=== PATIENT | female | born 1985 | race Caucasian/White ===

== ENCOUNTER → 2017-07-30 16:26 | Outpatient (CLI) | payer MEDICAID, SELFPAY ==
[2017-08-01 19:23] LABS: Chlamydia Trachomatis by PCR Negative (Negative); Neisserai gonorrhoeae by PCR Negative (Negative); Probe Check PASS; Sample Adequacy Control PASS; Specimen Processing Control PASS
[2017-08-04 14:43] LABS: HPV Reflexed? NOT INDICATED
== END ==
PROVIDERS: Family Provider Family Medicine; PCP Family Medicine; Visit Provider Obstetrics & Gynecology
DX: Z11.3 Encounter for screening for infections with a predominantly sexual mode of transmission (principal); Z12.4 Encounter for screening for malignant neoplasm of cervix
CPT/HCPCS: 87491; 87591; 88175; G0145

== ENCOUNTER → 2017-09-08 16:05 | Outpatient (CLI) | payer MEDICAID, SELFPAY | PROVIDERS: Visit Provider Obstetrics & Gynecology | DX: N39.0 Urinary tract infection, site not specified (principal) | CPT/HCPCS: 87086; 87088 ==

== ENCOUNTER → 2017-12-17 18:17 | Outpatient (CLI) | payer MEDICAID, SELFPAY ==
--- NOTE | 2017-12-17 18:24 | US_ITS ---
STUDY: ULTRASOUND OF THE FEMALE PELVIS - COMPLETE REASON FOR EXAM: Female, 32 years old. Cramping. Check IUD placement. TECHNIQUE: Transabdominal and Transvaginal TECHNICAL QUALITY: Adequate. COMPARISON: 04/18/2017 FINDINGS: The uterus is anteverted and is in a midline position. The uterus measures 11.9 x 4.9 x 2.8 cm. Normal uterine cervix. The endometrium measures 3 mm in thickness, and is hyperechoic. There is an intrauterine device noted in satisfactory position. There is no demonstrated endometrial mass. There is no demonstrated myometrial mass. The right ovary is visualized. The right ovary measures 3.4 x 3.4 x 2.0 cm. There is no right ovarian cyst or ovarian mass. There is a 2.9 x 2.8 cm complex cyst in the right ovary. There is normal arterial and normal venous vascularity. The left ovary is visualized. The left ovary measures 2.9 x 1.9 x 1.3 cm. There is no left ovarian cyst or ovarian mass. There is no visualized left adnexal mass or complex lesion. There is normal arterial and normal venous vascularity. There is no fluid in the cul-de-sac. US/Pelvic (Non ) IMPRESSION: Satisfactory position of the IUD. Normal uterus. Complex cyst in the right ovary. This may be hemorrhagic in nature. A follow-up ultrasound in 2-3 cycles is recommended. Electronically Signed: Merrill Peres, at 19:29 EDT Tel , Service support ,
== END ==
PROVIDERS: Family Provider Family Medicine; PCP Family Medicine; Visit Provider Obstetrics & Gynecology
DX: R10.2 Pelvic and perineal pain (principal); Z30.431 Encounter for routine checking of intrauterine contraceptive device
CPT/HCPCS: 76856; 93976

== ENCOUNTER 2018-08-29 13:04 | Emergency (ER) | payer MEDICAID, SELFPAY ==
[2018-08-29 13:05] VITALS: BP 160/104; PULSE 125; RESP 18; TEMP 37; O2SAT 100; BMI 26.4
--- NOTE | 2018-08-29 13:28 | EKG12_ITS ---
Test Reason : CP Blood Pressure : / mmHG Vent. Rate : 094 BPM Atrial Rate : 094 BPM P-R Int : 130 ms QRS Dur : 090 ms QT Int : 358 ms P-R-T Axes : -22 072 064 degrees QTc Int : 447 ms Normal sinus rhythm Normal ECG Confirmed by KENRICK GALLEGOS, ZAC ([id number]), supervising film or videotape editor SOMMER FABIAN ([id number]) on 09/01/2018 9:59:00 AM Referred By: TL Confirmed By:ZAC CHOUDHARY MD
--- NOTE | 2018-08-29 13:28 | RAD_ITS ---
STUDY: X-RAY CHEST REASON FOR EXAM: Female, 33 years old. Chest pain for one week TECHNIQUE: AP COMPARISON: None. FINDINGS: EKG leads project over the chest. The lungs are clear and expanded. There is no demonstrated pleural abnormality. Normal size heart. Normal mediastinum and lala. Normal visualized pulmonary arteries. Normal visualized aortic arch and descending thoracic aorta. Normal visualized thoracic spine. Normal visualized ribs, clavicles, and shoulders. There is no demonstrated abnormality of the visualized soft tissue structures of the upper abdomen. RAD/Chest 1 View (Portable) IMPRESSION: Nonacute portable x-ray examination of the chest. Electronically Signed: Raul Gutierrez MD at 13:48 EST , Service support ,
[2018-08-29 13:30] VITALS: O2SAT 98
[2018-08-29] MEDS: Aspirin 81 MG TAB.CHEW 324 MG PO (13:33)
[2018-08-29 13:36] LABS: Absolute Lymphocyte Count 2.41 X10^3/ul (0.83-4.51); Absolute Neutrophil Count 5.5 X10^3/uL (2.0-7.7); Basophil# 0.04 X10^3/uL; Basophil% 0.5 % (0-1); Eosinophil# 0.26 X10^3/uL; Hematocrit 47.4 % (37-47); Hemoglobin 15.2 g/dl (12.0-15.0); Lymphocyte # 2.41 X10^3/ul (4.0); Lymphocyte % 27.6 % (19-41); Mean Corp Hgb Conc 32.1 g/gl (32-36); Mean Corpuscular Hgb 30.3 pg (27.0-32.0); Mean Corpuscular Volume 94.4 fL (81-99); Mean Platelet Vol. 9.5 fl (6.2-12.0); Monocyte# 0.56 X10^3/uL; Monocyte% 6.4 % (0-10); Neutrophil # 5.46 X10^3/uL (2.7-7.7); Neutrophil % 62.5 % (47-70); Platelet Count 276 K/mm3 (150-450); RBC Distribution Width CV 13.1 % (11.6-14.6); RBC Distribution Width SD 45.3 fl (35.1-43.9); Red Blood Count 5.02 M/mm3 (4.2-5.4); White Blood Count 8.7 K/mm3 (4.4-11.0)
[2018-08-29 13:39] LABS: POSITIVE COUNT NO; POSITIVE DIFFERENTIAL NO; POSITIVE MORPHOLOGY NO
[2018-08-29 14:03] LABS: Anion Gap 8 (5-15); BUN 16 mg/dL (7-18); BUN/Creat Ratio 22.9 RATIO (10-20); Calcium,Total 8.6 mg/dL (8.5-10.1); Chloride 105 mmol/L (98-107); EST Glomerular Filtration Rate 102 mL/min (>60); Est Glom Filt Rate - Afr Amer 124 mL/min (>60); Estimated Creatinine Clearance 86.26 ml/min; Glucose 102 mg/dL (74-106); Potassium 3.5 mmol/L (3.5-5.1); Sodium Level 137 mmol/L (136-145)
--- NOTE | 2018-08-29 14:39 | ED.DCSUM_ITS ---
- ER Visit Summary Date of Service: 08/29/18 Chief Complaint: Chest pain History of Present Illness: The patient is a 33 F who presents with chest pain. Is been ongoing for the past week. Is been continuous. She describes as a tightness throughout her chest. It does not radiate. Nothing makes his pain better or worse. She also describes shortness of breath with it. She states that she has been having panic attacks because of this pain and she is concerned that it could be something serious. She has no DVT or PE risk factors. She is a smoker but has no other cardiac risk factors. Physical Examination: Vital signs reviewed. HEENT exam unremarkable. Heart is regular rate and rhythm without murmurs. Lungs are clear to auscultation. Abdomen is soft and nontender. Extremities reveal no edema. Peripheral pulses are equal. Skin exam normal. Neurologic exam normal. Test Results: EKG is sinus rhythm with rate of 94. No ST changes. Chest x-ray normal. Hemoglobin 15.2 but blood work is otherwise unremarkable Emergency Department Course and Treatment: Patient was medicated with aspirin. Her RENITA score is 0. I do not feel that this is cardiac. I have a very low suspicion for PE. When I evaluated her heart rate was 84 so she is PERC negative. I feel that she can be discharged. She has a follow-up appointment in 2 days with her new primary care physician at the [facility]. She will keep this appointment. Treatment Plan: [] Disposition: Discharge Impression: Chest pain This note was generated with [employer] dictation software. It may contain incorrect words, spelling, and punctuation that were not noted in review of the chart prior to signing ED Disposition - Plan for ED Patient: Referrals: Care Physician,No Primary [Primary Care Provider] -
--- NOTE | 2018-08-29 14:39 | ED.DEP ---
ED Disposition - Plan for ED Patient: Disposition: Home or Assisted Living Instructions: ED Chest Pain NonCardiac Referrals: Care Physician,No Primary [Primary Care Provider] -
[2018-08-29 15:02] VITALS: BP 112/76; PULSE 81; RESP 18; O2SAT 99
== END 2018-08-29 15:03 | disposition home or self-care (01) ==
PROVIDERS: Emergency Provider Emergency Medicine
DX: R07.9 Chest pain, unspecified (principal); F17.200 Nicotine dependence, unspecified, uncomplicated
CPT/HCPCS: 71045; 80048; 84484; 85025; 93005; 99285; A4216

== ENCOUNTER 2020-11-10 10:38 | Outpatient (RCR) | payer MEDICAID, SELFPAY | END 2020-12-15 23:59 | LOC: IMMUN 10:38 | PROVIDERS: Referring Provider Family Medicine; Visit Provider Family Medicine | DX: Z23 Encounter for immunization (principal) | CPT/HCPCS: 0001A; 91300 ==

== ENCOUNTER 2021-08-24 11:12 | Outpatient (CLI) | payer MEDICAID, SELFPAY ==
[2021-08-29 13:20] LABS: HPV APTIMA, High Risk Negative (Negative)
== END 2021-08-24 23:59 | disposition home or self-care (01) ==
PROVIDERS: Visit Provider Obstetrics & Gynecology
DX: Z12.4 Encounter for screening for malignant neoplasm of cervix (principal)
CPT/HCPCS: 87624; 88175; G0145